=== PATIENT | female | born 1940 | race Caucasian/White ===

== ENCOUNTER → 2017-05-01 | Outpatient (REF) | payer MEDICARE ==
[2017-05-01 12:32] LABS: ALBUMIN 3.8 GM/DL (3.2-5.2); ALBUMIN/GLOBULIN RATIO 1.27 (1.00-1.93); ALKALINE PHOSPHATASE 63 U/L (45-117); ALT/SGPT 28 U/L (12-78); ANION GAP 6 MEQ/L (8-16); AST/SGOT 21 U/L (15-37); BILIRUBIN,TOTAL 0.5 MG/DL (0.2-1.0); BLOOD UREA NITROGEN 18 MG/DL (7-18); CARBON DIOXIDE LEVEL 29 MEQ/L (21-32); CHLORIDE LEVEL 102 MEQ/L (98-107); CHOLESTEROL LEVEL 167 MG/DL (<200); CREATININE FOR GFR 0.79 MG/DL (0.55-1.02); GLOMERULAR FILTRATION RATE > 60.0 (>39); GLUCOSE, FASTING 96 MG/DL (83-110); POTASSIUM SERUM 4.5 MEQ/L (3.5-5.1); SODIUM LEVEL 137 MEQ/L (136-145); TOTAL PROTEIN 6.8 GM/DL (6.4-8.2); TRIGLYCERIDES LEVEL 68 MG/DL (<150)
== END ==
LOC: M SFHCCLAY 07:37
PROVIDERS: ATTEND Family Medicine
DX: F34.1 Dysthymic disorder (principal); Z79.899 Other long term (current) drug therapy

== ENCOUNTER → 2019-04-16 | Outpatient (REF) | payer MEDICARE ==
[2019-04-16 12:05] LABS: HEMATOCRIT 44.1 % (36.0-47.0); HEMOGLOBIN 14.6 g/dl (12.0-15.5); MEAN CORPUSCULAR HEMOGLOBIN 32.6 pg (27.0-33.0); MEAN CORPUSCULAR HGB CONC 33.1 g/dl (32.0-36.5); MEAN CORPUSCULAR VOLUME 98.4 fl (80.0-96.0); PLATELET COUNT, AUTOMATED 226 10^3/uL (150-450); RED BLOOD COUNT 4.48 10^6/uL (4.00-5.40); WHITE BLOOD COUNT 6.2 10^3/uL (4.0-10.0)
[2019-04-16 12:15] LABS: ALBUMIN 3.5 GM/DL (3.2-5.2); ALT/SGPT 25 U/L (12-78); BILIRUBIN,TOTAL 0.8 MG/DL (0.2-1.0); BLOOD UREA NITROGEN 16 MG/DL (7-18); CALCIUM LEVEL 9.1 MG/DL (8.8-10.2); CARBON DIOXIDE LEVEL 29 MEQ/L (21-32); CHLORIDE LEVEL 103 MEQ/L (98-107); CHOLESTEROL LEVEL 159 MG/DL (<200); CHOLESTEROL RISK RATIO 2.373 (<5); CREATININE FOR GFR 0.82 MG/DL (0.55-1.30); GLOMERULAR FILTRATION RATE > 60.0 (>39); GLUCOSE, FASTING 100 MG/DL (70-100); HDL CHOLESTEROL 67 MG/DL (>40); LDL CHOLESTEROL 77 MG/DL (<100); NON-HDL-C 92 MG/DL; POTASSIUM SERUM 4.7 MEQ/L (3.5-5.1); SODIUM LEVEL 139 MEQ/L (136-145); TOTAL PROTEIN 7.3 GM/DL (6.4-8.2); TRIGLYCERIDES LEVEL 77 MG/DL (<150)
== END ==
LOC: M SFHCCLAY 08:09
PROVIDERS: ATTEND Nurse Practitioner Family
DX: K21.9 Gastro-esophageal reflux disease without esophagitis (principal); I10 Essential (primary) hypertension; F34.1 Dysthymic disorder

== ENCOUNTER → 2019-04-17 | Outpatient (REF) | payer MEDICARE ==
[2019-04-22 00:07] LABS: ANA (HEP2) Negative (.); Lyme Disease IgG/IgM Antibodie <0.91 ISR (0.00-0.90); Lyme Disease IgM Ab Quantitati <0.80 index (0.00-0.79)
== END ==
LOC: M SFHCCLAY 11:27
PROVIDERS: ATTEND Nurse Practitioner Family
DX: M25.50 Pain in unspecified joint (principal)

== ENCOUNTER → 2019-04-17 | Outpatient (CLI) | payer MEDICARE ==
--- NOTE | 2019-04-17 13:20 | REP ---
Clinical: Pain. Arthralgia. Technique: Internal rotation, external rotation, and Y view of the right shoulder. Findings: Mild arthritic changes include cortical irregularity and subtle spurring at the acromioclavicular joint and acromion process along with small calcification at the AC joint. Blunting of the calcified glenoid rim is appreciated. Subacromial space is normal. There is no evidence for acute fracture or dislocation. Impression: Mild arthritic degenerative changes.
--- NOTE | 2019-04-17 13:53 | REP ---
Clinical: Arthralgia. Technique: Neutral and frog lateral views of the right and left hip. Findings: Mild arthritic changes are appreciated bilaterally and relatively symmetric. Findings include subtle increase sclerosis to the acetabular roof with minimal joint space narrowing. No significant osteophytosis, periarticular calcifications or soft tissue abnormalities noted. Impression: Mild symmetric age-related arthritic changes.
== END ==
LOC: M CLY 11:37
PROVIDERS: ATTEND Nurse Practitioner Family
DX: M16.0 Bilateral primary osteoarthritis of hip (principal); M19.011 Primary osteoarthritis, right shoulder; M25.50 Pain in unspecified joint
CPT/HCPCS: 73030; 73502; 85652; 86038; 86431; 86617; G0463

== ENCOUNTER → 2020-06-08 | Outpatient (REF) | payer MEDICARE | LOC: M SFHCCLAY 14:51 | PROVIDERS: ATTEND Family Medicine | DX: Z11.59 Encounter for screening for other viral diseases (principal); J02.9 Acute pharyngitis, unspecified; R10.9 Unspecified abdominal pain; R19.7 Diarrhea, unspecified | CPT/HCPCS: G0463; U0003 ==

== ENCOUNTER → 2020-07-14 | Outpatient (REF) | payer MEDICARE ==
[2020-07-14 16:49] LABS: HEMATOCRIT 45.4 % (36.0-47.0); HEMOGLOBIN 14.8 g/dl (12.0-15.5); MEAN CORPUSCULAR HEMOGLOBIN 31.8 pg (27.0-33.0); MEAN CORPUSCULAR HGB CONC 32.6 g/dl (32.0-36.5); MEAN CORPUSCULAR VOLUME 97.4 fl (80.0-96.0); PLATELET COUNT, AUTOMATED 202 10^3/uL (150-450); RED BLOOD COUNT 4.66 10^6/uL (4.00-5.40); WHITE BLOOD COUNT 5.7 10^3/uL (4.0-10.0)
[2020-07-14 16:55] LABS: ALBUMIN 3.8 GM/DL (3.2-5.2); ALT/SGPT 35 U/L (12-78); BLOOD UREA NITROGEN 14 MG/DL (7-18); CALCIUM LEVEL 9.7 MG/DL (8.8-10.2); CARBON DIOXIDE LEVEL 32 MEQ/L (21-32); CHLORIDE LEVEL 105 MEQ/L (98-107); CHOLESTEROL LEVEL 210 MG/DL (<200); CHOLESTEROL RISK RATIO 3.333 (<5); CREATININE FOR GFR 0.81 MG/DL (0.55-1.30); GLOMERULAR FILTRATION RATE > 60.0 (>39); GLUCOSE, FASTING 87 MG/DL (70-100); HDL CHOLESTEROL 63 MG/DL (>40); LDL CHOLESTEROL 133 MG/DL (<100); NON-HDL-C 147 MG/DL; POTASSIUM SERUM 4.3 MEQ/L (3.5-5.1); SODIUM LEVEL 139 MEQ/L (136-145); TOTAL PROTEIN 7.4 GM/DL (6.4-8.2); TRIGLYCERIDES LEVEL 72 MG/DL (<150)
[2020-07-14 17:03] LABS: TOTAL 25(OH) VITAMIN D 42.2 NG/ML (30.0-100.0)
== END ==
LOC: M LABDRAWC 12:51
PROVIDERS: ATTEND Nurse Practitioner Family
DX: I48.91 Unspecified atrial fibrillation (principal); K21.9 Gastro-esophageal reflux disease without esophagitis; E78.9 Disorder of lipoprotein metabolism, unspecified; F41.9 Anxiety disorder, unspecified; Z79.899 Other long term (current) drug therapy
CPT/HCPCS: 36415; 80053; 80061; 82306; 85027; G0463

== ENCOUNTER → 2021-07-19 | Outpatient (REF) | payer MEDICARE ==
[2021-07-19 13:31] LABS: BASO % 0.6 % (0.0-1.0); EOS # 0.1 10^3/uL (0.0-0.5); EOS % 2.7 % (0.0-3.0); HEMATOCRIT 44.9 % (36.0-47.0); HEMOGLOBIN 14.7 g/dl (12.0-15.5); LYMPH # 1.1 10^3/uL (1.5-5.0); LYMPH % 22.2 % (24.0-44.0); MEAN CORPUSCULAR HEMOGLOBIN 32.5 pg (27.0-33.0); MEAN CORPUSCULAR HGB CONC 32.7 g/dl (32.0-36.5); MEAN CORPUSCULAR VOLUME 99.1 fl (80.0-96.0); MONO # 0.4 10^3/uL (0.0-0.8); MONO % 9.1 % (2.0-8.0); NEUTROPHILS # 3.1 10^3/uL (1.5-8.5); NEUTROPHILS % 64.8 % (36.0-66.0); PLATELET COUNT, AUTOMATED 154 10^3/uL (150-450); RED BLOOD COUNT 4.53 10^6/uL (4.00-5.40); WHITE BLOOD COUNT 4.8 10^3/uL (4.0-10.0)
[2021-07-19 14:06] LABS: ALBUMIN 3.8 GM/DL (3.2-5.2); ALT/SGPT 32 U/L (12-78); BILIRUBIN,TOTAL 0.9 MG/DL (0.2-1.0); BLOOD UREA NITROGEN 15 MG/DL (7-18); CALCIUM LEVEL 9.6 MG/DL (8.8-10.2); CARBON DIOXIDE LEVEL 30 MEQ/L (21-32); CHLORIDE LEVEL 104 MEQ/L (98-107); CREATININE FOR GFR 0.76 MG/DL (0.55-1.30); FREE T4 0.86 NG/DL (0.76-1.46); GLOMERULAR FILTRATION RATE > 60.0 (>39); GLUCOSE, FASTING 73 MG/DL (70-100); POTASSIUM SERUM 4.7 MEQ/L (3.5-5.1); SODIUM LEVEL 138 MEQ/L (136-145); TOTAL PROTEIN 7.1 GM/DL (6.4-8.2)
== END ==
LOC: M SFHCCLAY 09:37
PROVIDERS: ATTEND Nurse Practitioner Family
DX: I42.9 Cardiomyopathy, unspecified (principal); I10 Essential (primary) hypertension; I48.91 Unspecified atrial fibrillation; F34.1 Dysthymic disorder; K58.0 Irritable bowel syndrome with diarrhea
CPT/HCPCS: 80053; 84439; 84443; 85025; G0463

== ENCOUNTER → 2024-05-05 | Outpatient (CLI) | payer MEDICARE | LOC: M CLY 11:48 | PROVIDERS: ATTEND Nurse Practitioner Family | DX: M25.562 Pain in left knee (principal) ==